=== PATIENT | male | born 1960 | race Caucasian/White ===

== ENCOUNTER 2018-04-06 06:48 | Day surgery (SDC) | payer OTHER ==
[2018-04-06] MEDS ORDERED: PROPOFOL 200 MG/20 ML VIAL As Ordered (07:07)
[2018-04-06] MEDS ORDERED: LIDOCAINE 2% INJ 100 MG/5 ML SDV (FOR ANES.) As Ordered (07:07)
[2018-04-06] MEDS: NS 1,000 ML IV (07:08)
== END 2018-04-06 08:40 | disposition home or self-care (01) ==
LOC: M OPP 06:48
DX: Z12.11 Encounter for screening for malignant neoplasm of colon (principal); K57.30 Diverticulosis of large intestine without perforation or abscess without bleeding; K64.8 Other hemorrhoids; R07.89 Other chest pain; I10 Essential (primary) hypertension; M19.90 Unspecified osteoarthritis, unspecified site; Z79.82 Long term (current) use of aspirin; Z79.899 Other long term (current) drug therapy; Z80.8 Family history of malignant neoplasm of other organs or systems
CPT/HCPCS: G0121

== ENCOUNTER 2020-08-29 07:49 | Emergency (ER) | payer OTHER ==
[~2020-08-29] VITALS: Ht 182.9 cm; Wt 100.7 kg
[~2020-08-29 07:49] MED LIST: ASPI81TA86 PO; LISI10TA4 PO; MULT1TAB10 PO; VIAG100T PO
[2020-08-29] MEDS ORDERED: AUGM875T28 PO (09:08)
[2020-08-29 09:17] VITALS: BP 147/82
== END 2020-08-29 09:22 | disposition home or self-care (01) ==
LOC: M ED 07:49
DX: K04.7 Periapical abscess without sinus (principal); Z79.899 Other long term (current) drug therapy